=== PATIENT | female | born 1985 | race Asian ===

== ENCOUNTER 2017-12-08 07:54 | Inpatient (IN) | payer SELFPAY ==
[~2017-12-08] VITALS: Ht 165 cm; Wt 70.3 kg
[2017-12-08] MEDS ORDERED: LACTATED RINGERS 1,000 ML IV SCH (08:18)
[2017-12-08] MEDS ORDERED: NALBUPHINE 10 MG/ML AMP IVP PRN (08:20)
[2017-12-08] MEDS ORDERED: AMPICILLIN 2,000 MG in NACL 0.9% MINI-BAG PLUS 100 ML IV SCH (08:20)
[2017-12-08] MEDS ORDERED: CARBOPROST 250 MCG/ML AMP IM PRN (08:20)
[2017-12-08] MEDS ORDERED: PROMETHAZINE 25 MG/ML VIAL IVP PRN (08:20)
[2017-12-08] MEDS ORDERED: OXYTOCIN 10 UNITS/ML VIAL IM SCH (08:20)
[2017-12-08] MEDS ORDERED: METHYLERGONOVINE 0.2 MG/ML AMP IM PRN (08:20)
[2017-12-08] MEDS ORDERED: OXYTOCIN 20 UNITS in LACTATED RINGERS 1,000 ML IV SCH (08:20)
[2017-12-08] MEDS ORDERED: AMPICILLIN 2,000 MG VIAL ONE (08:24)
--- NOTE | 2017-12-08 08:28 | NUR ---
PATIENT HAS BEEN SCREENED AND CATEGORIZED LOW NUTRITION RISK. PATIENT WILL BE SEEN WITHIN 7 DAYS OF ADMISSION. 12/14/[address]
[2017-12-08] MEDS ORDERED: BUPIVACAINE 0.125%/NS PREMIX 250 ML ONE (08:48)
[2017-12-08 09:06] LABS: BASOPHILS # (AUTO) 0.1 K/uL (0.00-0.22); BASOPHILS % (AUTO) 0.8 % (0.0-2.0); EOSINOPHILS # (AUTO) 0.1 K/uL (0-0.4); EOSINOPHILS % (AUTO) 0.9 % (0.0-4.0); HEMATOCRIT 39.7 % (36-48); HEMOGLOBIN 13.5 g/dL (12.0-16.0); LYMPHOCYTES # (AUTO) 1.9 K/uL (2.5-16.5); LYMPHOCYTES % (AUTO) 22.2 % (20.5-51.1); MEAN CORPUSCULAR HEMOGLOBIN 30 pg (27-31); MEAN CORPUSCULAR HGB CONC 34 g/dL (33-37); MEAN CORPUSCULAR VOLUME 88.6 fL (80-94); MONOCYTES # (AUTO) 0.4 K/uL (0.8-1.0); MONOCYTES % (AUTO) 4.7 % (1.7-9.3); NEUTROPHILS % (AUTO) 71.4 % (42.2-75.2); PLATELET COUNT (AUTO) 194 K/uL (140-450); RED BLOOD CELL COUNT(AUTO) 4.49 MIL/uL (4.20-5.40); RED CELL DISTRIBUTION WIDTH 15.4 % (11.6-13.7); WHITE BLOOD COUNT (AUTO) 8.4 K/uL (4.8-10.8)
[2017-12-08 09:08] LABS: APPEARANCE,URINE CLEAR (CLEAR); BILIRUBIN,URINE NEGATIVE (NEGATIVE); BLOOD, URINE 1+ (NEGATIVE); COLOR,URINE YELLOW (YELLOW); LEUKOCYTE ESTERASE ,URINE NEGATIVE (NEGATIVE); NITRITE, URINE NEGATIVE (NEGATIVE); UGLUCOSE NEGATIVE (NEGATIVE)
[2017-12-08 09:27] LABS: RBC,URINE 11-20 (MOD) /HPF (0-5); WBC,URINE 0-5 (RARE) /HPF (0-5)
[2017-12-08 09:49] LABS: ALBUMIN 2.8 g/dL (3.4-5.0); ANION GAP 12.8 (8-16); CREATININE 0.5 mg/dL (0.6-1.3); POTASSIUM 3.8 mmol/L (3.5-5.1); TOTAL BILIRUBIN 0.3 mg/dL (0.0-1.0)
[2017-12-08] MEDS ORDERED: OXYTOCIN 10 UNITS/ML VIAL ONE (11:01)
[2017-12-08] MEDS ORDERED: AMPICILLIN 1,000 MG in NACL 0.9% MINI-BAG PLUS 50 ML IV SCH (12:00)
[2017-12-08] MEDS ORDERED: SODIUM PHOSPHATE 118 ML ENEM RC PRN (16:45)
[2017-12-08] MEDS ORDERED: TEMAZEPAM 15 MG CAP PO PRN (16:45)
[2017-12-08] MEDS ORDERED: BENZOCAINE/MENTHOL 20%-0.5% 60 GM CAN TP PRN (16:45)
[2017-12-08] MEDS ORDERED: MEASLES, MUMPS, AND RUBELLA 1 VIAL SQVAC PRN (16:45)
[2017-12-08] MEDS ORDERED: HYDROcodone/APAP 5/325 MG 1 TAB TAB PO PRN (16:45)
[2017-12-08] MEDS ORDERED: IBUPROFEN 800 MG TAB PO PRN (16:45)
[2017-12-08] MEDS ORDERED: oxyCODONE/APAP 5/325 MG 1 TAB TAB PO PRN (16:45)
[2017-12-08] MEDS ORDERED: DOCUSATE SOD/SENNA 50/8.6 MG 1 TAB PO SCH (21:00)
[2017-12-09 11:04] LABS: HEMATOCRIT 35.4 % (36-48)
== END 2017-12-10 14:30 | disposition home or self-care (01) | DRG 775 ==
LOC: MLD 07:54 → MFCC 15:10
PROVIDERS: ADMIT Obstetrics & Gynecology; ATTEND Obstetrics & Gynecology
PROC: 10E0XZZ Delivery of Products of Conception, External Approach (ICD-10-PCS; principal; 2017-12-08)
PROC: 0HQ9XZZ Repair Perineum Skin, External Approach (ICD-10-PCS; 2017-12-08)
PROC: 3E0R3BZ Introduction of Anesthetic Agent into Spinal Canal, Percutaneous Approach (ICD-10-PCS; 2017-12-08)
PROC: 00HU33Z Insertion of Infusion Device into Spinal Canal, Percutaneous Approach (ICD-10-PCS; 2017-12-08)
DX: O69.81X0 Labor and delivery complicated by cord around neck, without compression, not applicable or unspecified (principal); O70.0 First degree perineal laceration during delivery; Z3A.37 37 weeks gestation of pregnancy; Z37.0 Single live birth
CPT/HCPCS: 36415; 59409; 80053; 81001; 85018; 85025; 86592; 86886; 86900; 86901; 87653-90; J0290; J2590; J3490; J7120